=== PATIENT | female | born 1975 | race Caucasian/White ===

== ENCOUNTER 2016-06-19 11:22 | Emergency (ER) | payer SELFPAY ==
[2016-06-19] MEDS ORDERED: Ibuprofen 800 MG TAB ONE (12:22)
[2016-06-19] MEDS ORDERED: Benzonatate 100 MG CAP ONE (12:51)
[2016-06-19] MEDS ORDERED: AMOXicillin 250 MG CAP ONE (12:51)
== END 2016-06-19 13:00 | disposition home or self-care (01) ==
LOC: MADERS 11:22
DX: J20.9 Acute bronchitis, unspecified (principal); J10.1 Influenza due to other identified influenza virus with other respiratory manifestations; D64.9 Anemia, unspecified; F32.9 Major depressive disorder, single episode, unspecified; F17.210 Nicotine dependence, cigarettes, uncomplicated
CPT/HCPCS: 87081; 87430; 99283

== ENCOUNTER 2016-06-29 20:41 | Emergency (ER) | payer SELFPAY ==
[2016-06-29 21:08] LABS: Bilirubin Negative (Negative); Blood, Urine Negative (Negative); Clarity Clear (Clear); Glucose, Urine (Dipstick) Negative (Negative); Leukocyte Negative (Negative); Nitrite Negative (Negative); Protein, Urine (Dipstick) Negative (Neg-Trace); Specific Gravity, Urine 1.025 (1.005-1.030); Urobilinogen 0.2 mg/dL (0.2-1.0)
[2016-06-29 21:18] LABS: Pregu Control Bar Appear? YES (CONTROL BAR); Specific Gravity 1.025 (1.002-1.036)
== END 2016-06-29 21:38 | disposition home or self-care (01) ==
LOC: MADERS 20:41
DX: N93.8 Other specified abnormal uterine and vaginal bleeding (principal); D22.71 Melanocytic nevi of right lower limb, including hip; D64.9 Anemia, unspecified; F32.9 Major depressive disorder, single episode, unspecified; F17.210 Nicotine dependence, cigarettes, uncomplicated
CPT/HCPCS: 51701; 81003; 81025; A4353

== ENCOUNTER 2017-03-30 19:20 | Emergency (ER) | payer SELFPAY ==
[2017-03-30] MEDS ORDERED: Ondansetron ODT 4 MG TAB ONE (19:44)
[2017-03-30] MEDS ORDERED: Oseltamivir 75 MG CAP ONE (19:44)
== END 2017-03-30 20:00 | disposition home or self-care (01) ==
LOC: MADERS 19:20
DX: J11.1 Influenza due to unidentified influenza virus with other respiratory manifestations (principal); F32.9 Major depressive disorder, single episode, unspecified; F17.210 Nicotine dependence, cigarettes, uncomplicated; D64.9 Anemia, unspecified
CPT/HCPCS: 99283; Q0162

== ENCOUNTER 2017-04-06 16:03 | Emergency (ER) | payer SELFPAY ==
[~2017-04-06 16:03] MED LIST: Sodium Chloride 0.9% 1,000 ML BAG ONE; Sodium Chloride 0.9% 100 ML BAG ONE
[2017-04-06 16:46] LABS: Anion Gap 16 mmol/L (10-20); BUN (Urea Nitrogen) 10 mg/dL (7.0-18.7); Calc. Creatinine Clearance 0 mL/min (70-130); Calcium 8.3 mg/dL (7.8-10.44); Carbon Dioxide 20 mmol/L (22-29); Chloride 109 mmol/L (98-107); Estimated GFR-MDRD Greater than 90; Glucose 96 mg/dL (70-105); Potassium 4.5 mmol/L (3.5-5.1); Sodium 140 mmol/L (136-145)
[2017-04-06 16:47] LABS: #Eosinphils 0.1 thou/uL (0.0-0.7); #Lymphocytes 2.1 thou/uL (1.20-3.40); #Monocytes 0.3 thou/uL (0.11-0.59); %Basophils 0.6 % (0.0-1.0); %Eosinophils 1.2 % (0.0-10.0); %Lymphocytes 37.8 % (21.0-51.0); %Monocytes 5.9 % (0.0-10.0); %Neutrophils 54.5 % (42.0-75.0); Anisocytosis SLIGHT = 6-15 cells (100X) (0-5/hpf); Giant Platelets SLIGHT; Hemoglobin 7.8 g/dL (12.0-16.0); Hypochromia SLIGHT = 6-15 cells (100X) (0-5/hpf); Large Platelets SLIGHT; MDiff Complete? YES; Mean Corpuscular HGB CONC 29.2 g/dL (32.0-36.0); Mean Corpuscular Hemoglobin 18.2 pg (27.0-31.0); Mean Corpuscular Volume 62.2 fl (81.0-99.0); Microcytosis MODERATE=15-30 cells (100X) (0-5/hpf); PLT Morphology Comment Appears Decreased; Platelet Count 124 thou/uL (130-400); Poikilocytosis SLIGHT = 6-15 cells (100X) (0-5/hpf); Polychromasia SLIGHT = 2-3 cells (100X) (0-2/hpf); RBC Distribution Width 17.3 % (11.5-14.5); Red Blood Cell (RBC) Count 4.27 mill/uL (4.20-5.40); White Blood Cell (WBC) Count 5.6 thou/uL (4.8-10.8)
[2017-04-06] MEDS ORDERED: Lorazepam 2 MG/ML VIAL ONE (16:55)
[2017-04-06] MEDS ORDERED: Phenytoin Sodium 100 MG/2 ML VIAL ONE (16:56)
[2017-04-06 17:54] LABS: Bilirubin Negative (Negative); Blood, Urine Moderate (Negative); Clarity Clear (Clear); Glucose, Urine (Dipstick) Negative (Negative); Leukocyte Small (Negative); Nitrite Negative (Negative); Protein, Urine (Dipstick) Negative (Neg-Trace); Specific Gravity, Urine 1.015 (1.005-1.030); Urobilinogen 0.2 mg/dL (0.2-1.0); pH, Urine 8.5 (5.0-9.0)
[2017-04-06 17:55] LABS: Pregnancy Test - Urine (BHCG) Negative (Negative); Pregu Control Background? CLEAR/WHITE (CLR/WHITE); Pregu Control Bar Appear? YES (CONTROL BAR); Specific Gravity 1.015 (1.002-1.036)
[2017-04-06 18:14] LABS: Amphetamine Not Detected (NotDetected); Barbiturates Screen Not Detected (NotDetected); Benzodiazepine Screen Not Detected (NotDetected); Cocaine Metabolite Screen Not Detected (NotDetected); Medtox Control Line Valid? VALID (VALID); Methadone Not Detected (NotDetected); Methamphetamine Not Detected (NotDetected); Opiate Screen Not Detected (NotDetected); Oxycodone Screen Not Detected (NotDetected); Phencyclidine (PCP) Not Detected (NotDetected); THC/Cannabinoid Screen Not Detected (NotDetected); Tricyclic Screen Not Detected (NotDetected)
[2017-04-06 18:19] LABS: Bacteria/HPF Rare-Few HPF (None Seen); Squamous Epithelial 0-3 HPF (0-3); Trichomonas/HPF Rare HPF (None Seen)
== END 2017-04-06 18:27 | disposition home or self-care (01) ==
LOC: MADERS 16:03
DX: R56.9 Unspecified convulsions (principal); F32.9 Major depressive disorder, single episode, unspecified; F17.210 Nicotine dependence, cigarettes, uncomplicated; D50.0 Iron deficiency anemia secondary to blood loss (chronic); A59.9 Trichomoniasis, unspecified
CPT/HCPCS: 36415; 80048; 80306; 81003; 81015; 81025; 85025; 94760; 96365; 96375; J1165; J2060; J7050

== ENCOUNTER 2018-01-04 10:25 | Emergency (ER) | payer SELFPAY ==
[~2018-01-04 10:25] MED LIST changes: -Sodium Chloride 0.9% 100 ML BAG ONE
[2018-01-04] MEDS ORDERED: Dicyclomine 10 MG CAP ONE (10:54)
[2018-01-04 11:42] LABS: Anisocytosis SLIGHT = 6-15 cells (100X) (0-5/hpf); Elliptocytes SLIGHT = 2-5 cells (100X) (0-1/hpf); Hemoglobin 8.1 g/dL (12.0-16.0); Hypochromia SLIGHT = 6-15 cells (100X) (0-5/hpf); Lymphocytes 18 % (21-51); MDiff Complete? YES; Mean Corpuscular HGB CONC 29.1 g/dL (32.0-36.0); Mean Corpuscular Hemoglobin 17.7 pg (27.0-31.0); Mean Corpuscular Volume 60.7 fL (78.0-98.0); Mean Platelet Volume 12.7 fL (7.4-10.4); Microcytosis SLIGHT = 6-15 cells (100X) (0-5/hpf); Monocytes 4 % (0-10); Neutrophil 78 % (42-75); Platelet Count 196 thou/uL (130-400); Poikilocytosis SLIGHT = 6-15 cells (100X) (0-5/hpf); RBC Distribution Width 16.5 % (11.5-14.5); Red Blood Cell (RBC) Count 4.57 mill/uL (4.20-5.40); Target Cells SLIGHT = 2-5 cells (100X) (0-1/hpf); Tear Drops SLIGHT = 2-5 cells (100X) (0-1/hpf); White Blood Cell (WBC) Count 10.6 thou/uL (4.8-10.8)
[2018-01-04 11:50] LABS: ALT (SGPT) Less than 7 U/L (8-55); AST (SGOT) 8 U/L (5-34); Albumin 4.1 g/dL (3.5-5.0); Alkaline Phosphatase 58 U/L (40-150); Anion Gap 13 mmol/L (10-20); BUN (Urea Nitrogen) 12 mg/dL (7.0-18.7); Bilirubin, Total 0.6 mg/dL (0.2-1.2); Calc. Creatinine Clearance 0 mL/min (70-130); Calcium 9.2 mg/dL (7.8-10.44); Carbon Dioxide 22 mmol/L (22-29); Chloride 107 mmol/L (98-107); Estimated GFR-MDRD 88; Globulin 3.1 g/dL (2.4-3.5); Glucose 92 mg/dL (70-105); Protein, Total 7.2 g/dL (6.0-8.3); Sodium 138 mmol/L (136-145)
== END 2018-01-04 12:50 | disposition home or self-care (01) ==
LOC: MADERS 10:25
DX: R19.7 Diarrhea, unspecified (principal); D50.9 Iron deficiency anemia, unspecified; F17.210 Nicotine dependence, cigarettes, uncomplicated; F32.9 Major depressive disorder, single episode, unspecified; Z79.899 Other long term (current) drug therapy
CPT/HCPCS: 36415; 80053; 82274; 85025; 87045; 87046; 87328; 87329; 87449; 87899; 96360; J7050

== ENCOUNTER 2018-04-18 19:48 | Emergency (ER) | payer SELFPAY | END 2018-04-18 20:10 | disposition home or self-care (01) | LOC: MADERS 19:48 | DX: G89.29 Other chronic pain (principal); M54.5 Low back pain | CPT/HCPCS: 99281 ==

== ENCOUNTER 2018-06-18 09:37 | Emergency (ER) | payer SELFPAY ==
[2018-06-18] MEDS ORDERED: Dexamethasone 10 MG/ML VIAL ONE (09:51)
[2018-06-18] MEDS ORDERED: Sodium Chloride 0.9% 100 ML ONE (09:51)
[2018-06-18] MEDS ORDERED: Magnesium Sulfate 2 GM/NS 0.9% 50 ML BAG ONE (09:51)
[2018-06-18 10:14] LABS: #Basophils 0.1 thou/uL (0.0-0.2); #Eosinphils 0.1 thou/uL (0.0-0.7); #Lymphocytes 1.6 thou/uL (1.20-3.40); #Monocytes 0.7 thou/uL (0.11-0.59); #Neutrophils 9.6 thou/uL (1.40-6.50); %Basophils 0.6 % (0.0-1.0); %Lymphocytes 13.2 % (21.0-51.0); %Monocytes 5.9 % (0.0-10.0); %Neutrophils 79.3 % (42.0-75.0); Anisocytosis SLIGHT = 6-15 cells (100X) (0-5/hpf); Elliptocytes SLIGHT = 2-5 cells (100X) (0-1/hpf); Hemoglobin 8.6 g/dL (12.0-16.0); Hypochromia SLIGHT = 6-15 cells (100X) (0-5/hpf); MDiff Complete? YES; Mean Corpuscular HGB CONC 29.3 g/dL (32.0-36.0); Mean Corpuscular Hemoglobin 18.1 pg (27.0-31.0); Mean Corpuscular Volume 61.8 fL (78.0-98.0); Mean Platelet Volume 11.1 fL (7.4-10.4); Microcytosis MODERATE=15-30 cells (100X) (0-5/hpf); Platelet Count 204 thou/uL (130-400); Poikilocytosis SLIGHT = 6-15 cells (100X) (0-5/hpf); RBC Distribution Width 18.6 % (11.5-14.5); Red Blood Cell (RBC) Count 4.77 mill/uL (4.20-5.40); Target Cells SLIGHT = 2-5 cells (100X) (0-1/hpf); Tear Drops SLIGHT = 2-5 cells (100X) (0-1/hpf); White Blood Cell (WBC) Count 12.1 thou/uL (4.8-10.8)
[2018-06-18 10:16] LABS: ALT (SGPT) Less than 7 U/L (8-55); AST (SGOT) 13 U/L (5-34); Albumin 4.4 g/dL (3.5-5.0); Alkaline Phosphatase 61 U/L (40-150); Anion Gap 15 mmol/L (10-20); BUN (Urea Nitrogen) 13 mg/dL (7.0-18.7); Bilirubin, Total 0.6 mg/dL (0.2-1.2); Calc. Creatinine Clearance 0 mL/min (70-130); Calcium 9.4 mg/dL (7.8-10.44); Carbon Dioxide 22 mmol/L (22-29); Chloride 105 mmol/L (98-107); Estimated GFR-MDRD 76; Globulin 3.3 g/dL (2.4-3.5); Glucose 98 mg/dL (70-105); Potassium 3.9 mmol/L (3.5-5.1); Protein, Total 7.7 g/dL (6.0-8.3); Sodium 138 mmol/L (136-145)
[2018-06-18] MEDS ORDERED: Morphine 4 MG/ML VIAL ONE (10:26)
[2018-06-18] MEDS ORDERED: cefTRIAXone\\ROCEPHIN 1 GM VIAL ONE (10:26)
--- NOTE | 2018-06-18 11:12 | RAD ---
2 VIEWS CHEST: Date: 06/19/18 COMPARISON: 04/01/14. HISTORY: Cough. FINDINGS: Two views of the chest show normal sized cardiomediastinal silhouette. There is no evidence of consol idation, mass, or pleural effusion. The bones are unremarkable. IMPRESSION: No evidence of acute cardiopulmonary disease. POS: [facility]
[2018-06-18] MEDS ORDERED: Azithromycin 500 MG VIAL ONE (11:37)
[2018-06-18] MEDS ORDERED: Sodium Chloride 0.9% 250 ML 250 ML ONE (11:38)
== END 2018-06-18 13:39 | disposition home or self-care (01) ==
LOC: MADERS 09:37
DX: J18.9 Pneumonia, unspecified organism (principal); F32.9 Major depressive disorder, single episode, unspecified; F17.210 Nicotine dependence, cigarettes, uncomplicated
CPT/HCPCS: 36415; 71046; 80053; 85025; 87804; 96365; 96367; 96375; J0456; J0696; J1100; J2270; J3475; J7050; J7620

== ENCOUNTER 2019-03-19 16:20 | Emergency (ER) | payer SELFPAY ==
[2019-03-19] MEDS ORDERED: HYDROcodone/Acetaminophen 5/325 mg Tablet ONE (17:33)
[2019-03-19] MEDS ORDERED: Ibuprofen 800 MG TAB ONE (17:33)
[2019-03-19] MEDS ORDERED: Penicillin V Potassium 250 MG TAB ONE (17:33)
== END 2019-03-19 17:52 | disposition home or self-care (01) ==
LOC: MADERS 16:20
DX: K04.7 Periapical abscess without sinus (principal); K02.9 Dental caries, unspecified
CPT/HCPCS: 99282

== ENCOUNTER 2019-05-12 08:57 | Emergency (ER) | payer SELFPAY | END 2019-05-12 10:17 | disposition home or self-care (01) | LOC: MADERS 08:57 | DX: J45.909 Unspecified asthma, uncomplicated (principal); J06.9 Acute upper respiratory infection, unspecified; G40.909 Epilepsy, unspecified, not intractable, without status epilepticus; Z87.891 Personal history of nicotine dependence | CPT/HCPCS: 87081; 87430; 87804; 94640; 94664; J7620 ==

== ENCOUNTER 2019-10-13 10:37 | Emergency (ER) | payer SELFPAY ==
[2019-10-13 11:47] LABS: #Basophils 0.1 thou/uL (0.0-0.2); #Eosinphils 0.1 thou/uL (0.0-0.7); #Lymphocytes 2.3 thou/uL (1.20-3.40); #Monocytes 0.6 thou/uL (0.11-0.59); #Neutrophils 5.1 thou/uL (1.40-6.50); %Basophils 1.1 % (0.0-1.0); %Eosinophils 1.4 % (0.0-10.0); %Lymphocytes 27.8 % (21.0-51.0); %Monocytes 7.2 % (0.0-10.0); %Neutrophils 62.6 % (42.0-75.0); Hemoglobin 6.4 g/dL (12.0-16.0); Mean Corpuscular HGB CONC 27.1 g/dL (32.0-36.0); Mean Corpuscular Volume 59.1 fL (78.0-98.0); Mean Platelet Volume 11.6 fL (7.4-10.4); Platelet Count 172 thou/uL (130-400); RBC Distribution Width 16.9 % (11.5-14.5); White Blood Cell (WBC) Count 8.2 thou/uL (4.8-10.8)
[2019-10-13 11:52] LABS: Hypochromia MODERATE=16-30 cells (100X) (0-5/hpf); Microcytosis MODERATE=15-30 cells (100X) (0-5/hpf); Platelet Morphology Comment Appears Adequate
[2019-10-13 11:53] LABS: Anisocytosis MODERATE=16-30 cells (100X) (0-5/hpf)
[2019-10-13 11:55] LABS: ALT (SGPT) Less than 7 U/L (8-55); AST (SGOT) 14 U/L (5-34); Alkaline Phosphatase 47 U/L (40-110); Anion Gap 15 mmol/L (10-20); BUN (Urea Nitrogen) 12 mg/dL (7.0-18.7); Bilirubin, Total 0.2 mg/dL (0.2-1.2); Calc. Creatinine Clearance 0 mL/min (70-130); Calcium 8.6 mg/dL (7.8-10.44); Carbon Dioxide 19 mmol/L (22-29); Chloride 109 mmol/L (98-107); Estimated GFR-MDRD 90; Globulin 2.8 g/dL (2.4-3.5); Glucose 94 mg/dL (70-105); Potassium 4.1 mmol/L (3.5-5.1); Protein, Total 6.8 g/dL (6.0-8.3); Sodium 139 mmol/L (136-145)
[2019-10-13 13:25] LABS: Pregnancy Test - Urine (BHCG) Negative (Negative); Specific Gravity 1.005 (1.002-1.036)
[2019-10-13 13:26] LABS: Pregu Control Background? CLEAR/WHITE (CLR/WHITE); Pregu Control Bar Appear? YES (CONTROL BAR)
== END 2019-10-13 13:45 | disposition short-term general hospital (02) ==
LOC: MADERS 10:37
DX: D64.9 Anemia, unspecified (principal); G40.909 Epilepsy, unspecified, not intractable, without status epilepticus; Z87.891 Personal history of nicotine dependence
CPT/HCPCS: 36430; 80053; 81025; 85025; 86850; 86900; 86901; 93005; P9016

== ENCOUNTER 2021-04-20 07:59 | Emergency (ER) | payer SELFPAY ==
[2021-04-20 08:49] LABS: Bilirubin Negative (Negative); Blood, Urine Trace (Negative); Glucose, Urine (Dipstick) Negative (Negative); Ketone, Urine Negative (Negative); Leukocyte Negative (Negative); Nitrite Negative (Negative); Protein, Urine (Dipstick) Negative (Neg-Trace); Specific Gravity, Urine 1.025 (1.005-1.030); Urobilinogen 0.2 mg/dL (Less than 2); pH, Urine 5.5 (5.0-9.0)
[2021-04-20 08:59] LABS: Clarity Hazy (Clear)
[2021-04-20 09:00] LABS: Bacteria/HPF 1+ HPF (None Seen); RBC/HPF 0-3 HPF (0-3); Trichomonas/HPF 1+ HPF (None Seen); WBC/HPF 0-3 HPF (0-3)
[2021-04-20] MEDS ORDERED: cefTRIAXone\\ROCEPHIN 500 MG VIAL ONE (09:08)
[2021-04-20] MEDS ORDERED: Sterile Water 10 ML ONE (09:15)
[2021-04-22 05:01] LABS: Chlamydia by PCR Not Detected (NotDetected); GC by PCR Not Detected (NotDetected)
== END 2021-04-20 09:36 | disposition home or self-care (01) ==
LOC: MADERS 07:59
DX: A59.9 Trichomoniasis, unspecified (principal); B37.3 Candidiasis of vulva and vagina; F17.210 Nicotine dependence, cigarettes, uncomplicated
CPT/HCPCS: 81003; 81015; 87480; 87491; 87510; 87591; 87660; 96372; 99283; J0696

== ENCOUNTER 2021-07-11 14:05 | Emergency (ER) | payer SELFPAY | END 2021-07-11 15:00 | disposition home or self-care (01) | LOC: MADERS 14:05 | DX: J02.9 Acute pharyngitis, unspecified (principal); F17.210 Nicotine dependence, cigarettes, uncomplicated | CPT/HCPCS: 87081; 87430; 99283 ==

== ENCOUNTER 2021-12-05 15:30 | Emergency (ER) | payer SELFPAY ==
[2021-12-05] MEDS ORDERED: Acetaminophen 500 MG TAB ONE ×2 (16:10)
[2021-12-05] MEDS ORDERED: Ibuprofen 800 MG TAB ONE (16:10)
== END 2021-12-05 16:50 | disposition home or self-care (01) ==
LOC: MADERS 15:30
DX: J02.9 Acute pharyngitis, unspecified (principal)
CPT/HCPCS: 87081; 87430; 99283

== ENCOUNTER 2021-12-27 08:28 | Emergency (ER) | payer SELFPAY | END 2021-12-27 11:06 | disposition home or self-care (01) | LOC: MADERS 08:28 | DX: S83.92XA Sprain of unspecified site of left knee, initial encounter (principal); X50.1XXA Overexertion from prolonged static or awkward postures, initial encounter ==

== ENCOUNTER 2022-12-03 16:08 | Emergency (ER) | payer SELFPAY ==
[2022-12-03] MEDS ORDERED: predniSONE 20 MG TAB ONE (17:13)
== END 2022-12-03 17:19 | disposition home or self-care (01) ==
LOC: MADERS 16:08
DX: J02.8 Acute pharyngitis due to other specified organisms (principal); Z20.822 Contact with and (suspected) exposure to COVID-19; Z87.891 Personal history of nicotine dependence
CPT/HCPCS: 87081; 87430; 87635; 87804; 99283; J7512

== ENCOUNTER 2023-03-09 23:40 | Emergency (ER) | payer BC ==
[2023-03-09] MEDS ORDERED: Acetaminophen 500 MG TAB ONE (23:54)
== END 2023-03-10 00:25 | disposition home or self-care (01) ==
LOC: MADERS 23:40
DX: G40.89 Other seizures (principal); F17.210 Nicotine dependence, cigarettes, uncomplicated
CPT/HCPCS: 36416; 70450; 93005; 94760

== ENCOUNTER 2023-10-13 03:28 | Emergency (ER) | payer BC, SELFPAY ==
[2023-10-13] MEDS ORDERED: Lidocaine 1% w/Epinephrine 1:100K 20 ML VIAL ONE (03:55)
[2023-10-13] MEDS ORDERED: Bacitracin 1 PK ONE (04:24)
== END 2023-10-13 06:21 | disposition home or self-care (01) ==
LOC: MADERS 03:28
DX: S03.2XXA Dislocation of tooth, initial encounter (principal); S01.511A Laceration without foreign body of lip, initial encounter; G40.909 Epilepsy, unspecified, not intractable, without status epilepticus; X58.XXXA Exposure to other specified factors, initial encounter
CPT/HCPCS: 12011; 70450; 70486

== ENCOUNTER 2024-11-07 07:23 | Emergency (ER) | payer SELFPAY ==
[2024-11-07 08:03] LABS: #Basophils 0.1 thou/uL (0.0-0.2); #Eosinophils 0.2 thou/uL (0.0-0.7); #Lymphocytes 2.8 thou/uL (1.20-3.40); #Monocytes 0.9 thou/uL (0.11-0.59); #Neutrophils 9.2 thou/uL (1.40-6.50); %Basophils 0.6 % (0.0-1.0); %Eosinophils 1.3 % (0.0-10.0); %Lymphocytes 21.3 % (21.0-51.0); %Monocytes 6.7 % (0.0-10.0); %Neutrophils 70.2 % (42.0-75.0); Hematocrit 43.9 % (36.0-47.0); Hemoglobin 14.3 g/dL (12.0-16.0); Mean Corpuscular Hemoglobin 29.7 pg (27.0-31.0); Mean Corpuscular Volume 91.0 fl (78.0-98.0); Platelet Count 181 10x3/uL (130-400); Red Blood Cell (RBC) Count 4.83 mill/uL (4.20-5.40); White Blood Cell (WBC) Count 13.1 10x3/uL (4.8-10.8)
[2024-11-07 08:05] LABS: Glucose, Urine (Dipstick) Negative (Negative); Leukocyte Negative (Negative); Protein, Urine (Dipstick) Trace mg/dL (Neg-Trace); Specific Gravity, Urine 1.025 (1.005-1.030)
[2024-11-07 08:18] LABS: ALT (SGPT) 7 U/L (Less than 34); AST (SGOT) 18 U/L (11-34); Albumin 4.0 g/dL (3.1-4.5); Alkaline Phosphatase 64 U/L (40-110); Anion Gap 16 mmol/L (10-20); BUN (Urea Nitrogen) 10 mg/dL (9.8-20.1); Bacteria/HPF 2+ HPF (None Seen); Bilirubin, Total 0.6 mg/dL (0.3-1.2); CAUTI Indications for Culture Pelvic or flank pain; Calc. Creatinine Clearance 0 mL/min (70-130); Calcium 8.6 mg/dL (7.8-10.44); Carbon Dioxide 21 mmol/L (22-29); Chloride 108 mmol/L (98-107); Globulin 3.0 g/dL (2.4-3.5); Glucose 108 mg/dL (70-105); Lipase 15 U/L (8-78); Potassium 3.8 mmol/L (3.5-5.1); Sodium 141 mmol/L (136-145)
[2024-11-07 08:20] LABS: Urine Culture Reflex No No
[2024-11-07] MEDS ORDERED: Amoxicillin/Potassium Clav 875 MG TAB ONE (09:48)
== END 2024-11-07 09:49 | disposition home or self-care (01) ==
LOC: MADERS 07:23
DX: K57.32 Diverticulitis of large intestine without perforation or abscess without bleeding (principal); F17.210 Nicotine dependence, cigarettes, uncomplicated
CPT/HCPCS: 74177; 80053; 81001; 83690; 85025